=== PATIENT | female | born 1995 | race Caucasian/White ===

== ENCOUNTER 2016-06-29 13:55 | Emergency (ER) | payer OTHER ==
[~2016-06-29] VITALS: Ht 160 cm; Wt 54.4 kg
[~2016-06-29 13:55] MED LIST: NAPR-243 PO; ONDA-42 SL; PHEN200T27 PO; SULF-222 PO; TRM50T PO
--- OUTSIDE RECORDS SUMMARY | 2016-06-29 14:01 | XMS REPORT ---
Author SURENDRA Ryder Organization [employer] Address Unknown Phone Unavailable Care Team Providers Care Supervisor Denture Department Name Role Phone SURENDRA VITALE CP Unavailable Allergies, Adverse Reactions, Alerts Substance Reaction Event Type Latex, Natural Rubber Info Not Available Non Drug Allergy Peanut Info Not Available Non Drug Allergy [employer] Info Not Available Non Drug Allergy Dairy Aid Info Not Available Non Drug Allergy Problems Problem Type Condition Code Onset Dates Condition Status Assessment Depression F32.9 Active Assessment Constipated K59.00 Active Problem Constipated K59.00 Active Problem Candidiasis of vulva and vagina 112.1 Active Problem Depression F32.9 Active Problem Leukorrhea, not specified as infective 623.5 Active Assessment Hemorrhoid K64.9 Active Problem Abdominal pain, right lower quadrant 789.03 Active Problem Screening examination for venereal disease V74.5 Active Medications Medication Code System Code Instructions Start Date End Date Status Dosage Anusol-HC [facility] [address]-93 2.5 % Rectal Twice a day Jul 12, 2015September 1 application to affected area Gail [facility] [address]-83 10 mg December 14, 2013 take 1 tablet (10 mg) by oral route once daily in the evening Polyethylene Glycol 3350 [facility] [address]-92 17 Once a day Jul 12, 2015 as directed Procedures Procedure Coding System Code Date Office Visit, Est Pt., Level 3 CPT-4 77433 Jul 12, 2015 Vital Signs Date/Time: Jul 12, 2015 Temperature 97.5 F Weight 124.4 lbs Height 63 in BMI 22.03 Index Blood Pressure Diastolic 70 mmHg Blood Pressure Systolic 105 mmHg Cardiac Monitoring Heart Rate 80 bpm Results No Known Results Summary Purpose [employer] Submission
[2016-06-29] MEDS ORDERED: ONDANSETRON 4 MG (ZOFRAN) ORAL DISSOLVE TAB ONE (15:50)
[2016-06-29] MEDS ORDERED: ONDANSETRON 8 MG (ZOFRAN) ORAL DISSOLVE TAB PO ONE (16:00)
[2016-06-29] MEDS ORDERED: NS IV 1000 ML 1,000 ML ONE (16:27)
[2016-06-29] MEDS ORDERED: KETOROLAC 30 MG/ML VIAL ONE (16:27)
[2016-06-29] MEDS ORDERED: ONDANSETRON 4 MG/2 ML (SDV) Z0FRAN ONE (16:27)
[2016-06-29] MEDS ORDERED: KETOROLAC 30 MG/ML VIAL IVP STA (16:47)
--- NOTE | 2016-06-29 16:59 | ED GI ---
General Chief Complaint: Abdominal/GI Problems Stated Complaint: SEVERE VOMITING Nursing Triage Note: Pt. advised vomiting began approx. 1200. She advises she vomited approx. 8-9 times. Sepsis Screen: No Definite Risk Source of Information: Patient Exam Limitations: No Limitations History of Present Illness Time Seen By Provider: 16:21 Initial Comments Here with report of upper GI pain and vomiting. Denies diarrhea. CO epigastric cramping and pain as well as body aches. Timing/Duration: 4-6 Hours, Changing Over Time, Intermittent Severity/Quality: Moderate, Severe, Cramping Location: Epigastric Radiation: No Radiation Modifying Factors: Improves With Vomiting Associated Symptoms: No Back Pain, No Chest Pain, No Fever/Chills, Heartburn Nausea/VomitingNo Shortness of Air, No Weakness Allergies and Home Medications Allergies Coded Allergies: morphine (Verified Allergy, 07/29/13) Uncoded Allergies: ?NASAL SPRAY (Allergy, 07/29/13) Home Medications Ondansetron Hcl 4 Mg Tab #5 4 MG SL Q4H FOR NAUSEA AND VOMITING Prescribed by: PARISH JONES on 11/27/14 0306 Phenazopyridine Hcl 200 Mg Tablet #15 1 EACH PO TID PRN PRN BLADDER DISCOMFORT Prescribed by: PARISH JONES on 11/27/14 0306 Trimethoprim/Sulfamethoxazole 1 Ea Tablet #20 1 TAB PO BID (Reported) Review of Systems Constitutional: see HPI EENTM: No Symptoms Reported Respiratory: No Symptoms Reported Cardiovascular: No Symptoms Reported Gastrointestinal: See HPI Abdominal PainDenies Diarrhea, Nausea Vomiting Genitourinary: No Symptoms Reported Musculoskeletal: see HPI muscle pain Skin: no symptoms reported Psychiatric/Neurological: Anxiety Headache Endocrine: No Symptoms Reported All Other Systems Reviewed Negative Unless Noted: Yes Past [place]-Npoiqt-Qtpcrt Hx Patient Social History Alcohol Use: Denies Use Recreational Drug Use: No Smoking Status: Never a Smoker Recent Foreign Travel: No Contact w/Someone Who Travel: No Recent Infectious Disease Expo: No Recent Hopitalizations: No Seasonal Allergies Seasonal Allergies: Yes Surgeries HX Surgeries: Yes (DENTAL) Respiratory Hx Respiratory Disorders: No Cardiovascular Hx Cardiac Disorders: No Neurological Hx Neurological Disorders: No Reproductive System Hx Reproductive Disorders: No Genitourinary Hx Genitourinary Disorders: No Gastrointestinal Hx Gastrointestinal Disorders: No Musculoskeletal Hx Musculoskeletal Disorders: No Endocrine Hx Endocrine Disorders: No HEENT HX ENT Disorders: Yes (WEARS GLASSES) Cancer Hx Cancer: No Psychosocial Hx Psychiatric Problems: No Integumentary HX Skin/Integumentary Disorder: No Blood Transfusions Hx Blood Disorders: No Reviewed Nursing Assessment Reviewed/Agree w Nursing PMH: Yes Family Medical History Significant Family History: No Pertinent Family Hx Physical Exam Vital Signs VS - Last 72 Hours, by Label 06/29/16 15:04 Temp 97.4 Pulse 93 Resp 12 B/P 114/66 Pulse Ox 98 O2 Delivery Room Air Capillary Refill : Less Than 3 Seconds General Appearance: WD/WN mild distress HEENT: PERRL/EOMI pharynx normal Neck: full range of motion supple Respiratory: lungs clear normal breath sounds Cardiovascular: no murmur tachycardia Peripheral Pulses: 2+ Dorsalis Pedis (R), 2+ Left Dors-Pedis (L), 2+ Radial Pulses (R), 2+ Radial Pulses (L) Gastrointestinal: non tender soft Extremities: non-tender normal inspection Back: normal inspection no CVA tenderness no vertebral tenderness Neurologic/Psychiatric: alert oriented x 3 Skin: normal color warm/dry Progress/Results/Core Measures Results/Orders Lab Results Laboratory Tests Test 06/29/16 16:30 06/29/16 18:23 Range/Units Alanine Aminotransferase (ALT/SGPT) 14 0-55 U/L Albumin 4.7 H 3.2-4.5 G/DL Alkaline Phosphatase 38 L 40-136 U/L Anion Gap 11 5-14 MMOL/L Aspartate Amino Transf (AST/SGOT) 18 5-34 U/L BUN/Creatinine Ratio 15 Band Neutrophils 1 % Basophils # (Auto) 0.0 0.0-0.1 10^3/uL Basophils % (Manual) 0 % Basophils (%) (Auto) 0 0-10 % Blood Morphology Comment NORMAL Blood Urea Nitrogen 12 7-18 MG/DL Calcium Level 9.8 8.5-10.1 MG/DL Carbon Dioxide Level 21 21-32 MMOL/L Chloride Level 106 98-107 MMOL/L Creatinine 0.80 0.60-1.30 MG/DL Eosinophils # (Auto) 0.0 0.0-0.3 10^3/uL Eosinophils % (Manual) 0 % Eosinophils (%) (Auto) 0 0-10 % Estimat Glomerular Filtration Rate > 60 Glucose Level 90 70-105 MG/DL Hematocrit 36 35-52 % Hemoglobin 12.1 11.5-16.0 G/DL Lipase 12 8-78 U/L Lymphocytes # (Auto) 0.8 L 1.0-4.0 X 10^3 Lymphocytes % (Manual) 11 % Lymphocytes (%) (Auto) 7 L 12-44 % Mean Corpuscular Hemoglobin 32 25-34 PG Mean Corpuscular Hemoglobin Concent 34 32-36 G/DL Mean Corpuscular Volume 95 80-99 FL Mean Platelet Volume 11.1 H 7.4-10.4 FL Monocytes # (Auto) 0.4 0.0-1.0 X 10^3 Monocytes % (Manual) 8 % Monocytes (%) (Auto) 3 0-12 % Neutrophils # (Auto) 9.9 H 1.8-7.8 X 10^3 Neutrophils % (Manual) 81 % Neutrophils (%) (Auto) 89 H 42-75 % Platelet Count 240 130-400 10^3/uL Potassium Level 4.2 3.6-5.0 MMOL/L Red Blood Count 3.76 L 4.35-5.85 10^6/uL Red Cell Distribution Width 12.2 10.0-14.5 % Serum Test, Qualitative NEGATIVE NEGATIVE Sodium Level 138 135-145 MMOL/L Total Bilirubin 0.6 0.1-1.0 MG/DL Total Protein 7.5 6.4-8.2 G/DL White Blood Count 11.1 H 4.3-11.0 10^3/uL Urine Bacteria MODERATE H /HPF Urine Bilirubin NEGATIVE NEGATIVE Urine Casts NONE /LPF Urine Clarity SLIGHTLY CLOUDY Urine Color YELLOW Urine Crystals NONE /LPF Urine Culture Indicated NO Urine Glucose (UA) NEGATIVE NEGATIVE Urine Ketones 3+ H NEGATIVE Urine Leukocyte Esterase 1+ H NEGATIVE Urine Mucus NEGATIVE /LPF Urine Nitrite NEGATIVE NEGATIVE Urine Protein NEGATIVE NEGATIVE Urine RBC 2-5 H /HPF Urine RBC (Auto) 2+ H NEGATIVE Urine Specific [place] 1.015 L 1.016-1.022 Urine Squamous Epithelial Cells 5-10 /HPF Urine Urobilinogen NORMAL NORMAL MG/DL Urine WBC 2-5 /HPF Urine pH 6.5 5-9 My Orders Orders-ARJUN MUKHERJEE MD Ketorolac Injection (Toradol Injection) (06/29/16 16:47) Cbc With Automated Diff (06/29/16 17:16) Comprehensive Metabolic Panel (06/29/16 17:16) Lipase (06/29/16 17:16) Ua Culture If Indicated (06/29/16 17:16) Hcg,Qualitative Serum (06/29/16 17:16) Manual Differential (06/29/16 16:30) Ns Iv 1000 Ml (Sodium Chloride 0.9%) (06/29/16 17:34) Rx-Ondansetron Po (Rx-Zofran Po) (06/29/16 19:05) Medications Given in ED Current Medications Medications Dose Ordered Sig/Natalee Route Start Time Stop Time Status Last Admin Dose Admin Sodium Chloride 1,000 ml @ 0 mls/hr Q0M ONCE IV 06/29/16 17:34 06/29/16 17:35 DC 06/29/16 17:42 1,000 MLS/HR Vital Signs/I&O Vital Sign - Last 12Hours 06/29/16 15:04 Temp 97.4 Pulse 93 Resp 12 B/P 114/66 Pulse Ox 98 O2 Delivery Room Air Blood Pressure Mean: 82 Progress Note : Progress Note Seen and evaluated. IV, labs, NS 1 LT bolus, zofran 4 mg IV, toradol 30 mg IV, monitor. 1735: N/V better but still has mild global headache. HX of migraines. Repeat NS 1 LT bolus. UA ordered. Monitor patient.1900: improved overall. Dc home with return precautions. Patient and family verbalized understanding of instructions and agreement with plan. Departure Impression Impression: Primary Impression: Nausea and vomiting Qualified Code: R11.14 - Bilious vomiting Additional Impressions: Headache Qualified Code: R51 - Headache Dehydration Disposition: 01 HOME, SELF-CARE Condition: Improved Departure-Patient Inst. Decision time for Depature: 19:05 Referrals: NO,LOCAL PHYSICIAN (PCP/Family) Primary Care Physician Patient Instructions: Dehydration, Adult (DC), Nausea and Vomiting, Adult (DC) Add. Discharge Instructions: All discharge instructions reviewed with patient and/or family. Voiced understanding. Clear liquid diet for 24 hours then advance as tolerated. Drink small sips frequently. Follow up with your doctor in a few days for recheck and further evaluation as needed. Take meds as directed. REturn for worse pain, fever, vomiting or other concerns as needed. ARJUN MUKHERJEE MD Jun 29, 2016 16:59
[2016-06-29 17:24] LABS: BASOPHILS % (AUTO) 0 % (0-10); EOSINOPHILS % (AUTO) 0 % (0-10); LYMPHOCYTES # (AUTO) 0.8 X 10^3 (1.0-4.0); LYMPHOCYTES % (AUTO) 7 % (12-44); MEAN CORPUSCULAR HEMOGLOBIN 32 PG (25-34); MEAN CORPUSCULAR HGB CONC 34 G/DL (32-36); MEAN CORPUSCULAR VOLUME 95 FL (80-99); MEAN PLATELET VOLUME 11.1 FL (7.4-10.4); MONOCYTES # (AUTO) 0.4 X 10^3 (0.0-1.0); MONOCYTES % (AUTO) 3 % (0-12); NEUTROPHILS # (AUTO) 9.9 X 10^3 (1.8-7.8); NEUTROPHILS % (AUTO) 89 % (42-75); PLATELET COUNT 240 10^3/uL (130-400); RED BLOOD COUNT 3.76 10^6/uL (4.35-5.85); RED CELL DISTRIBUTION WIDTH 12.2 % (10.0-14.5); WHITE BLOOD COUNT 11.1 10^3/uL (4.3-11.0)
[2016-06-29] MEDS ORDERED: NS IV 1000 ML 1,000 ML IV ONE (17:34)
[2016-06-29 17:37] LABS: ALANINE AMINOTRANSFERASE 14 U/L (0-55); ALBUMIN 4.7 G/DL (3.2-4.5); ANION GAP 11 MMOL/L (5-14); ASPARTATE AMINO TRANSFERASE 18 U/L (5-34); BILIRUBIN,TOTAL 0.6 MG/DL (0.1-1.0); BLOOD UREA NITROGEN 12 MG/DL (7-18); BUN/CREATININE RATIO 15; CALCIUM 9.8 MG/DL (8.5-10.1); CARBON DIOXIDE 21 MMOL/L (21-32); CHLORIDE 106 MMOL/L (98-107); GFR ESTIMATED > 60; GLUCOSE 90 MG/DL (70-105); LIPASE 12 U/L (8-78); POTASSIUM 4.2 MMOL/L (3.6-5.0); SODIUM 138 MMOL/L (135-145); TOTAL PROTEIN 7.5 G/DL (6.4-8.2)
[2016-06-29 17:43] LABS: BAND NEUTROPHILS 1 %; BASOPHILS % (MANUAL) 0 %; EOSINOPHILS % (MANUAL) 0 %; LYMPHOCYTES % (MANUAL) 11 %; NEUTROPHILS % (MANUAL) 81 %
[2016-06-29 18:31] LABS: BILIRUBIN,URINE NEGATIVE (NEGATIVE); KETONES,URINE 3+ (NEGATIVE); LEUKOCYTE ESTERASE ,URINE 1+ (NEGATIVE); NITRITE,URINE NEGATIVE (NEGATIVE); PH,URINE 6.5 (5-9); PROTEIN,URINE NEGATIVE (NEGATIVE); UROBILINOGEN,URINE NORMAL (NORMAL)
[2016-06-29] MEDS ORDERED: RX-ONDANSETRON 4 MG ODT (ZOFRAN) PPK #4 ONE (19:00)
[2016-06-29] MEDS ORDERED: RX-ONDANSETRON 4 MG ODT (ZOFRAN) PPK #4 PO STA (19:05)
[2016-06-29 19:11] VITALS: BP 109/60
[2016-06-29] MEDS ORDERED: NS IV 1000 ML 1,000 ML IV SCH (20:45)
== END 2016-06-29 19:11 | disposition home or self-care (01) ==
LOC: EDUNIT# 13:55 → ER 13:58
DX: R11.2 Nausea with vomiting, unspecified (principal); R51 Headache; E86.0 Dehydration
CPT/HCPCS: 36415; 80053; 81000; 83690; 84703; 85007; 85027; 96361; 96374; 96375